=== PATIENT | male | born 1975 | race Caucasian/White ===

== ENCOUNTER 2019-01-28 10:16 | Emergency (ER) | payer SELFPAY ==
[~2019-01-28] VITALS: Ht 177.8 cm; Wt 106.6 kg
[2019-01-28 10:31] VITALS: BP 120/77
== END 2019-01-28 11:58 | disposition home or self-care (01) ==
LOC: ER 10:16
DX: H00.022 Hordeolum internum right lower eyelid (principal); J01.00 Acute maxillary sinusitis, unspecified

== ENCOUNTER 2019-03-24 10:01 | Emergency (ER) | payer MEDICAID ==
[~2019-03-24] VITALS: Ht 177.8 cm; Wt 106.6 kg
[2019-03-24 10:36] VITALS: BP 115/71
== END 2019-03-24 11:09 | disposition home or self-care (01) ==
LOC: ER 10:01
DX: J20.9 Acute bronchitis, unspecified (principal); F41.9 Anxiety disorder, unspecified; F32.9 Major depressive disorder, single episode, unspecified

== ENCOUNTER 2021-03-10 09:49 | Emergency (ER) | payer MEDICAID ==
[~2021-03-10] VITALS: Ht 177.8 cm; Wt 113.4 kg
[2021-03-10 10:36] VITALS: BP 131/99
[2021-03-10] MEDS ORDERED: ACETAMINOPHEN 325 MG TAB PO ONE (13:15)
== END 2021-03-10 13:11 | disposition home or self-care (01) ==
LOC: ER 09:49
DX: F41.9 Anxiety disorder, unspecified (principal)

== ENCOUNTER 2021-09-27 08:17 | Emergency (ER) | payer MEDICAID ==
[2021-09-27 08:24] VITALS: BP 118/70
[2021-09-27] MEDS ORDERED: HYDR50CA PO (09:00)
[2021-09-27] MEDS ORDERED: FLUT1SPR5 (09:00)
== END 2021-09-27 09:00 | disposition home or self-care (01) ==
LOC: ER 08:17
DX: F41.9 Anxiety disorder, unspecified (principal); R09.81 Nasal congestion; Z76.0 Encounter for issue of repeat prescription; Z79.899 Other long term (current) drug therapy
CPT/HCPCS: 93005